=== PATIENT | male | born 1975 | race African-American/Black ===

== ENCOUNTER 2020-12-30 | Emergency (ER) | payer SELFPAY | END 2020-12-30 22:24 | disposition E | DRG 914 | PROC: 5A12012 Performance of Cardiac Output, Single, Manual (ICD-10-PCS; principal; 2020-12-30) | PROC: 30233N1 Transfusion of Nonautologous Red Blood Cells into Peripheral Vein, Percutaneous Approach (ICD-10-PCS; 2020-12-30) | DX: S21.342A Puncture wound with foreign body of left front wall of thorax with penetration into thoracic cavity, initial encounter (principal); I46.8 Cardiac arrest due to other underlying condition; S71.031A Puncture wound without foreign body, right hip, initial encounter; W34.00XA Accidental discharge from unspecified firearms or gun, initial encounter | CPT/HCPCS: P9016 ==